=== PATIENT | male | born 1975 ===

== ENCOUNTER 2022-11-20 09:57 | Day surgery (SDC) | payer OTHER ==
[2022-11-16 13:44] VITALS: BMI 18.6
[2022-11-20] MEDS ORDERED: PROPOFOL 20 ML ONE (11:18)
[2022-11-20] MEDS ORDERED: Midazolam HCl 2 mg/2 ml Vial ONE (11:18)
== END 2022-11-20 12:46 | disposition home or self-care (01) ==
LOC: CSHSDC 09:57
PROVIDERS: ATTEND Internal Medicine Gastroenterology
PROC: 0DB68ZX Excision of Stomach, Via Natural or Artificial Opening Endoscopic, Diagnostic (ICD-10-PCS; principal; 2022-11-20)
DX: K29.00 Acute gastritis without bleeding (principal); K29.80 Duodenitis without bleeding; K26.9 Duodenal ulcer, unspecified as acute or chronic, without hemorrhage or perforation; K20.90 Esophagitis, unspecified without bleeding; E66.9 Obesity, unspecified; I10 Essential (primary) hypertension; E78.5 Hyperlipidemia, unspecified; F17.210 Nicotine dependence, cigarettes, uncomplicated
CPT/HCPCS: 88305; J2250; J2704